=== PATIENT | female | born 1955 | race Two or more races ===

== ENCOUNTER 2024-05-10 04:07 | Emergency (ER) | payer OTHER ==
[~2024-05-10] VITALS: Ht 157.5 cm; Wt 79.4 kg
[~2024-05-10 04:07] MED LIST: METFORMIN HCL500 MG
[2024-05-10] MEDS ORDERED: SYNJARDY 12.5-1 EACH PO (04:12)
[2024-05-10] MEDS ORDERED: KETOROLAC TROMETHAMINE 30 MG VIAL IV STA (05:05)
[2024-05-10] MEDS ORDERED: DIPHENHYDRAMINE HCL 50 MG/ML VIAL 1ML IM STA (05:06)
[2024-05-10] MEDS ORDERED: HALOPERIDOL LACTATE 5 MG/ML AMPUL IM STA (05:06)
[2024-05-10] MEDS ORDERED: CLONIDINE HCL 0.1 MG TABLET PO STA (05:06)
[2024-05-10] MEDS ORDERED: DIPHENHYDRAMINE HCL 50 MG/ML VIAL 1ML ONE (05:41)
[2024-05-10] MEDS ORDERED: HALOPERIDOL LACTATE 5 MG/ML AMPUL ONE (05:41)
[2024-05-10] MEDS ORDERED: CLONIDINE HCL 0.1 MG TABLET PO ONE (05:41)
[2024-05-10] MEDS ORDERED: KETOROLAC TROMETHAMINE 30 MG VIAL ONE (05:41)
== END 2024-05-10 06:34 | disposition home or self-care (01) ==
LOC: ER 04:10
DX: G43.809 Other migraine, not intractable, without status migrainosus (principal); E11.9 Type 2 diabetes mellitus without complications; Z79.84 Long term (current) use of oral hypoglycemic drugs
CPT/HCPCS: 93005; 96365; 96372; 99283; J1200; J1630; J1885